=== PATIENT | male | born 1990 | race African-American/Black ===

== ENCOUNTER 2021-11-14 11:04 | Emergency (ER) | payer SELFPAY | END 2021-11-14 11:32 | disposition home or self-care (01) | LOC: CSHERS 11:04 | DX: J06.9 Acute upper respiratory infection, unspecified (principal); I10 Essential (primary) hypertension | CPT/HCPCS: 99283 ==

== ENCOUNTER 2021-12-28 08:00 | Emergency (ER) | payer SELFPAY | END 2021-12-28 08:48 | disposition home or self-care (01) | LOC: CSHERS 08:00 | DX: K02.9 Dental caries, unspecified (principal); I10 Essential (primary) hypertension | CPT/HCPCS: 99282 ==